=== PATIENT | female | born 1935 | race Caucasian/White ===

== ENCOUNTER 2019-02-19 04:43 | Emergency (ER) | payer OTHER, MEDICAID ==
[~2019-02-19] VITALS: Ht 154.9 cm; Wt 54.4 kg
[2019-02-19 04:43] VITALS: BP_SYST 129
[~2019-02-19 04:43] MED LIST: LEVO175T2 PO; SOLI5TAB2 PO
--- NOTE | 2019-02-19 04:43 | NUR ---
Pt BIB BLS, placed to ER bed 02. Report given to CHRIS Brown. Pt from home and called 911 r/t vomiting. Pt states that she filled up the entire bathroom sink with vomit. EMS reports that she also vomited during transport. No active vomiting noted at this time, but pt does c/o nausea. Pt with hx brain CA with 2 sx in the past. Pt finished chemotherapy in December 2018.
--- NOTE | 2019-02-19 04:49 | NUR ---
Pt brought in by [facility]. Pt awake, alert, oriented x4. Pt states that she had x2 episodes of vomiting in the early hours of the morning and has persistent nausea. Pt states that she is a cancer patient that recieved her last chemo treatment several months ago, with radiation. Pt states that she normally takes nausea medications and ran out. Pt denies chest pain, diarrhea, shortness of breath. Pt denies any other medical complaint at this time. Pt Resting in bed with no acute signs of distress, vss, will continue to monitor.
--- NOTE | 2019-02-19 04:50 | NUR ---
ER at bedside examining patient.
[2019-02-19] MEDS ORDERED: NACL 0.9% 1,000 ML IV ONE (05:36)
[2019-02-19] MEDS ORDERED: PANTOPRAZOLE SODIUM 40 MG/VIAL (PROTONIX) IVP ONE (05:45)
[2019-02-19] MEDS ORDERED: ONDANSETRON HCL 4 MG/2 ML VIAL IVP ONE (05:45)
[2019-02-19 06:17] LABS: BASOPHILS % (AUTO) 0.1 % (0.0-2.0); EOSINOPHILS % (AUTO) 0.2 % (0.0-4.0); HEMATOCRIT 39.6 % (36-48); HEMOGLOBIN 13.6 g/dL (12.0-16.0); LYMPHOCYTES # (AUTO) 0.3 K/uL (1.0-5.5); LYMPHOCYTES % (AUTO) 4.6 % (20.5-51.5); MEAN CORPUSCULAR HEMOGLOBIN 31 pg (27-31); MEAN CORPUSCULAR HGB CONC 34 % (32-36); MEAN CORPUSCULAR VOLUME 91 fL (79.0-98.0); MONOCYTES # (AUTO) 0.2 K/uL (0.0-1.0); MONOCYTES % (AUTO) 2.5 % (1.7-9.3); NEUTROPHILS # (AUTO) 6.1 K/uL (1.8-7.7); NEUTROPHILS % (AUTO) 92.6 % (40.0-70.0); PLATELET COUNT (AUTO) 174 K/uL (130-430); RED BLOOD CELL COUNT(AUTO) 4.33 MIL/uL (4.2-6.2); WHITE BLOOD COUNT (AUTO) 6.6 K/uL (4.8-10.8)
--- NOTE | 2019-02-19 06:20 | NUR ---
Pt's Daughter Faiza called (no answer, message left per patients instructions)
--- NOTE | 2019-02-19 06:21 | NUR ---
Son of patient (Rodger) called. Spoke with patients son to help establish a ride home and discuss treatment per the request of the patient. 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
[2019-02-19 06:23] LABS: ANION GAP 5 (5-15); CALCIUM 9.6 mg/dL (8.4-11.0); CHLORIDE 97 mmol/L (98-107); CREATININE 0.77 mg/dL (0.55-1.30); GLUCOSE 127 mg/dL (70-99); POTASSIUM 3.8 mmol/L (3.5-5.1); SODIUM SERUM 132 mmol/L (136-145); UREA NITROGEN, BLOOD 12 mg/dL (8-21)
[2019-02-19 06:28] LABS: ALANINE AMINOTRANSFERASE 16 U/L (12-78); ALBUMIN 3.8 g/dL (3.4-4.8); ASPARTATE AMINOTRANSFERASE 21 U/L (10-37); LIPASE 103 U/L (73-393); TOTAL BILIRUBIN 1.1 mg/dL (0.0-1.0)
--- NOTE | 2019-02-19 07:05 | NUR ---
Report from Trevor PEREZ
--- NOTE | 2019-02-19 08:15 | NUR ---
Patient given written and verbal discharge instructions and verbalizes understanding. ER MD discussed with patient the results and treatment provided. Patient in stable condition. ID arm band removed. Rx of Batrim & motrin given. Patient educated on pain management and to follow up with PMD. Pain Scale 2/10 tolerable. Opportunity for questions provided and answered. Medication side effect fact sheet provided.
--- NOTE | 2019-02-19 08:38 | NUR ---
Patient given written and verbal discharge instructions and verbalizes understanding. ER MD discussed with patient the results and treatment provided. Patient in stable condition. ID arm band removed. IV catheter removed intact and dressing applied, no active bleeding. Rx of zofran given. Patient educated on pain management and to follow up with PMD. Pain Scale 0/10. Opportunity for questions provided and answered. Medication side effect fact sheet provided.
[2019-02-19 08:40] VITALS: BP_SYST 133
[2019-02-19 09:36] LABS: BILIRUBIN,URINE NEGATIVE (NEGATIVE); BLOOD, URINE TRACE (NEGATIVE); CLARITY/URINE CLEAR (CLEAR); COLOR,URINE YELLOW (YELLOW); GLUCOSE,URINE NEGATIVE (NEGATIVE); KETONES,URINE TRACE (NEGATIVE); LEUKOCYTE ESTERASE ,URINE NEGATIVE (NEGATIVE); NITRITE, URINE NEGATIVE (NEGATIVE); PH,URINE 6.5 (5.0-8.0); PROTEIN URINE NEGATIVE (NEGATIVE); UROBILINOGEN,URINE 0.2 (0.2-1.0)
[2019-02-19 09:44] LABS: BACTERIA,URINE FEW /HPF (None Seen); HYALINE CASTS, URINE 0-10 /LPF (None Seen); RBC,URINE 0-3 /HPF (0-3)
== END 2019-02-19 08:40 | disposition home or self-care (01) ==
LOC: SED 04:43
DX: R11.2 Nausea with vomiting, unspecified (principal); R51 Headache; R42 Dizziness and giddiness; D49.6 Neoplasm of unspecified behavior of brain; Z88.0 Allergy status to penicillin; Z88.6 Allergy status to analgesic agent
CPT/HCPCS: 36415; 80053; 81000; 83690; 85025; 96361; 96374; 96375; 99283; C9113; J2405; J7030